=== PATIENT | male | born 1995 | race Caucasian/White ===

== ENCOUNTER 2018-06-13 08:52 | Emergency (ER) | payer SELFPAY ==
[2018-06-13 09:16] VITALS: BP 114/60
--- NOTE | 2018-06-13 10:19 | RAD ---
INDICATION: Right elbow pain. TECHNIQUE: 4 views of the right elbow were obtained. FINDINGS: The bones are in normal alignment. No joint effusion or fracture is seen. Joint spaces appear maintained. IMPRESSION: NEGATIVE EXAM.
--- NOTE | 2018-06-13 10:37 | UC ---
Elbow Pain - HPI Summary HPI Summary: The patient is a 23-year-old male with the onset of right elbow pain on . The pain started while he was shoveling mulch. Since then he has had right elbow pain that waxes and wanes. On some days he has no elbow pain. He is right handed. He has had no elbow problems in the past. His symptoms got worse after he golfed in a tournament. He recently used loppers and that exacerbated his pain. He is currently pain-free at rest. He only experiences pain with lifting or twisting his arm. He has not taken any medication for this. He has not missed any work because of this. - History of Current Complaint Chief Complaint: UCUpperExtremity Stated Complaint: ELBOW INJURY Time Seen by Provider: 06/13/18 09:41 Hx Obtained From: Patient Onset/Duration: Weeks Severity Initially: Moderate Pain Intensity: 0 - at rest/upto 7 with use Pain Scale Used: 0-10 Numeric Location Of Pain: Is Diffuse Character: Aching, Throbbing Aggravating Factor(s): Movement, Pulling, Twisting Alleviating Factor(s): Rest - Allergies/Home Medications Allergies/Adverse Reactions: Allergies Allergy/AdvReac Type Severity Reaction Status Date / Time No Known Allergies Allergy Verified 06/13/18 09:16 Home Medications: Home Medications NK [No Home Medications Reported] 06/13/18 [History Confirmed 06/13/18] PMH/Surg Hx/FS Hx/Imm Hx Previously Healthy: Yes - Surgical History Surgical History: Yes Surgery Procedure, Year, and Place: bilat feet, bilat hands - Family History Known Family History: Positive: Hypertension - Social History Alcohol Use: Occasionally Substance Use Type: None Smoking Status (MU): Never Smoked Tobacco Review of Systems Constitutional: Negative Skin: Negative Eyes: Negative ENT: Negative Respiratory: Negative Cardiovascular: Negative Gastrointestinal: Negative Genitourinary: Negative Motor: Negative Neurovascular: Negative Musculoskeletal: Arthralgia Neurological: Negative Psychological: Negative Is Patient Immunocompromised?: No All Other Systems Reviewed And Are Negative: Yes Physical Exam Triage Information Reviewed: Yes Appearance: Well-Appearing, No Pain Distress, Well-Nourished Vital Signs: Initial Vital Signs Temp 98.3 F 06/13/18 09:11 Pulse 64 06/13/18 09:11 Resp 18 06/13/18 09:11 BP 114/60 06/13/18 09:11 Pulse Ox 99 06/13/18 09:11 Vital Signs Reviewed: Yes Eyes: Positive: Conjunctiva Clear ENT: Positive: Hearing grossly normal. Negative: Nasal congestion, Nasal drainage, Trismus, Muffled voice, Hoarse voice Neck: Positive: Supple, Nontender Cardiovascular: Positive: RRR, No Murmur Musculoskeletal: Positive: ROM Intact, No Edema Neurological: Positive: Alert Psychological Exam: Normal Skin Exam: Normal Diagnostics - Radiology No standard instances Xray Interpretation: No Acute Changes Radiology Interpretation Completed By: Radiologist Elbow Pain Course/Dx - Differential Dx/Diagnosis Provider Diagnoses: overuse syndrome right elbow Discharge - Sign-Out/Discharge Documenting (check all that apply): Patient Departure - Discharge Plan Condition: Stable Disposition: HOME Referrals: [facility] [Outside] - As Soon As Possible Additional Instructions: your XR was normal I suspect an overuse injury from repetitive motion It could be muscle strain, tendon strain, ligament injury, or combination of problems ice twice daily aleve 1-2 twice daily with food for pain I suggest follow up - Billing Disposition and Condition Condition: STABLE Disposition: Home
== END 2018-06-13 10:47 | disposition home or self-care (01) ==
LOC: UCEAST 08:52
DX: M70.821 Other soft tissue disorders related to use, overuse and pressure, right upper arm (principal); Y93.H1 Activity, digging, shoveling and raking; Z82.49 Family history of ischemic heart disease and other diseases of the circulatory system
CPT/HCPCS: 99201; G0463